=== PATIENT | female | born 1950 ===

== ENCOUNTER 2019-05-07 15:11 | Outpatient (CLI) | payer OTHER ==
--- NOTE | 2019-05-07 16:33 | XRay Report ---
RIGHT KNEE HISTORY: Posterior mass. COMPARISON: None. TECHNIQUE: 2 views of the right knee obtained. FINDINGS: Bones: No fracture or dislocation. Joint spaces: Osteoarthritis with preservation of the medial and lateral joint spaces. Medial and lat eral osteophytes. Soft tissues: A posterior soft tissue mass measures 3 to 4 cm. No calcifications associated with the mass. Additional findings: None. IMPRESSION: 1. Posterior soft tissue mass. The differential includes a popliteal artery aneurysm but there are no arterial calcifications to suggest atherosclerotic disease. A Dalton's cyst is also a possibility. 2. Moderate osteoarthritis. Signer Name: El Hernandez MD Signed: 05/07/2019 4:28 PM Workstation Name: [id number]
== END 2019-05-07 15:12 | disposition home or self-care (01) ==
LOC: XRAY 15:11
PROVIDERS: ATTEND Internal Medicine
DX: M17.11 Unilateral primary osteoarthritis, right knee (principal); M25.761 Osteophyte, right knee; M79.89 Other specified soft tissue disorders

== ENCOUNTER 2019-05-16 09:16 | Outpatient (CLI) | payer OTHER ==
--- NOTE | 2019-05-16 10:06 | XRay Report ---
LEFT FOOT 3 VIEWS INDICATION / CLINICAL INFORMATION: NONDISPLACED FRACTURE OF SECOND METATARSAL BONE COMPARISON: None available. FINDINGS: BONES and JOINT(S): No acute fracture or subluxation. There is generalized osteopenia. Calcaneal enth esophytes are seen without additional significant arthritis. SOFT TISSUES: No significant abnormality. ADDITIONAL FINDINGS: None. IMPRESSION: No acute fracture or other acute abnormality of the left foot. Signer Name: Clyde Amin MD Signed: 05/16/2019 10:01 AM Workstation Name: [id number]
== END 2019-05-16 09:17 | disposition home or self-care (01) ==
LOC: XRAY 09:16
PROVIDERS: ATTEND Internal Medicine
DX: S92.326A Nondisplaced fracture of second metatarsal bone, unspecified foot, initial encounter for closed fracture (principal); M77.32 Calcaneal spur, left foot; M85.872 Other specified disorders of bone density and structure, left ankle and foot; X58.XXXA Exposure to other specified factors, initial encounter; Y93.89 Activity, other specified; Y92.89 Other specified places as the place of occurrence of the external cause; Y99.9 Unspecified external cause status